=== PATIENT | female | born 1960 | race Caucasian/White ===

== ENCOUNTER → 2021-09-20 | Outpatient (CLI) | payer MEDICARE | LOC: KOH-I 15:45 | DX: M53.3 Sacrococcygeal disorders, not elsewhere classified (principal); M47.816 Spondylosis without myelopathy or radiculopathy, lumbar region; M48.55XA Collapsed vertebra, not elsewhere classified, thoracolumbar region, initial encounter for fracture | CPT/HCPCS: 72100; 72220 ==

== ENCOUNTER → 2021-10-11 | Outpatient (CLI) | payer MEDICARE ==
[~2021-10-11] MED LIST: CYCLOBENZAPRINE10 MG PO; IBUPROFEN600 MG PO
== END ==
LOC: MRI 08:30
DX: Z47.89 Encounter for other orthopedic aftercare (principal); Z98.890 Other specified postprocedural states; M51.36 Other intervertebral disc degeneration, lumbar region; S32.010D Wedge compression fracture of first lumbar vertebra, subsequent encounter for fracture with routine healing
CPT/HCPCS: 72148

== ENCOUNTER → 2021-11-14 | Outpatient (CLI) | payer MEDICARE ==
[2021-11-14 10:48] LABS: HEMOGLOBIN 12.4 gm/dl (12.3-15.3); RED BLOOD COUNT 4.25 M/UL (4.00-5.10)
[2021-11-14 11:13] LABS: BUN/CREATININE RATIO 17 (0-10)
== END ==
LOC: LAB 09:43
PROVIDERS: Neurological Surgery
DX: M81.0 Age-related osteoporosis without current pathological fracture (principal); R79.1 Abnormal coagulation profile; R68.89 Other general symptoms and signs; J84.9 Interstitial pulmonary disease, unspecified; M48.56XA Collapsed vertebra, not elsewhere classified, lumbar region, initial encounter for fracture
CPT/HCPCS: 36415; 71046; 80048; 81001; 85025; 85610; 85730; 93005